=== PATIENT | female | born 2000 | race Two or more races ===

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

== ENCOUNTER 2021-01-22 10:08 | Emergency (ER) | payer MEDICAID, OTHER ==
[~2021-01-22] VITALS: Ht 149.9 cm; Wt 54.4 kg
[2021-01-22] MEDS ORDERED: cefTRIAXone SOD 1,000 MG VL IM ONE (11:30)
[2021-01-22 11:48] VITALS: BP 111/66
== END 2021-01-22 12:32 | disposition home or self-care (01) ==
LOC: ER 10:08
DX: J03.90 Acute tonsillitis, unspecified (principal)
CPT/HCPCS: 96372; 99283; J0696

== ENCOUNTER 2022-02-23 09:42 | Emergency (ER) | payer MEDICAID ==
[~2022-02-23] VITALS: Ht 149.9 cm; Wt 60.0 kg
[2022-02-23 10:03] VITALS: BP 131/68
[2022-02-23] MEDS ORDERED: cefTRIAXone SOD 1,000 MG VL IM ONE (10:45)
[2022-02-23] MEDS ORDERED: AZIT500T66 PO (11:12)
[2022-02-23] MEDS ORDERED: LIDO2SOL23 MT (11:12)
== END 2022-02-23 11:25 | disposition home or self-care (01) ==
LOC: ER 09:42
DX: J03.90 Acute tonsillitis, unspecified (principal)
CPT/HCPCS: 96372; 99283; J0696

== ENCOUNTER 2022-06-13 02:56 | Emergency (ER) | payer MEDICAID ==
[~2022-06-13] VITALS: Ht 149.9 cm; Wt 135.0 kg
[~2022-06-13 02:56] MED LIST changes: -ACETAMINOPHEN 500 MG TAB PO ONE; +AZIT500T66 PO; +LIDO2SOL23 MT; -cefTRIAXone SOD 1,000 MG VL ONE; -cefTRIAXone W LIDOCAINE 1 GM IM IM ONE; -methylPREDNISolone SOD SUCC 125 MG/2 ML VL IM ONE
[2022-06-13 04:19] VITALS: BP 122/71
== END 2022-06-13 04:23 | disposition home or self-care (01) ==
LOC: ER 02:56
DX: T19.2XXA Foreign body in vulva and vagina, initial encounter (principal); X58.XXXA Exposure to other specified factors, initial encounter; Y93.89 Activity, other specified; Y92.89 Other specified places as the place of occurrence of the external cause; Y99.8 Other external cause status

== ENCOUNTER 2022-08-14 00:26 | Emergency (ER) | payer MEDICAID ==
[~2022-08-14] VITALS: Ht 149.9 cm; Wt 63.8 kg
[2022-08-14 00:46] VITALS: BP 128/55
[2022-08-14 01:19] LABS: Basophils # (auto) 0 10 ^3/uL (0-0.2); Basophils % (auto) 0.5 % (0.0-2.0); Eosinophils # (auto) 0.2 10 ^3/uL (0-0.8); Eosinophils % (auto) 2.7 % (0.0-7.0); Hematocrit 38.3 % (36.0-46.0); Lymphocytes # (auto) 1.1 10 ^3/uL (0.4-5.4); Lymphocytes % (auto) 16.4 % (10.0-50.0); Mean Corpuscular Hemoglobin 31.2 pg (28.0-32.0); Monocytes # (auto) 0.6 10 ^3/uL (0-1.3); Monocytes % (auto) 9.7 % (0.0-12.0); Neutrophils # (auto) 4.7 10 ^3/uL (1.6-8.6); Neutrophils % (auto) 70.7 % (37.0-80.0); Red Blood Cells 4.17 10^6/uL (4.0-5.20); Red Cell Distribution Width 14.6 % (11.8-14.3); White Blood Cell 6.6 10^3/uL (4.4-10.8)
[2022-08-14 01:34] LABS: Albumin 3.8 g/dL (3.4-5.0); BUN/Creatinine Ratio 17.5 (10.0-20.0); Calcium 8.7 mg/dL (8.5-10.1); Potassium 3.7 mmol/L (3.5-5.1)
[2022-08-14 01:36] LABS: Bilirubin, Total 0.4 mg/dL (0.2-1.0); Total Protein 7.5 g/dL (6.4-8.2)
[2022-08-14 02:44] LABS: Urine Bacteria NONE SEEN /hpf (None Seen); Urine Blood Negative /uL (Negative); Urine Specific Gravity 1.009 (1.001-1.035); Urine WBC 2 /hpf (0 - 5)
== END 2022-08-14 03:48 | disposition left against medical advice (07) ==
LOC: ER 00:26
DX: T19.2XXA Foreign body in vulva and vagina, initial encounter (principal); Z88.1 Allergy status to other antibiotic agents; X58.XXXA Exposure to other specified factors, initial encounter; Y93.89 Activity, other specified; Y92.89 Other specified places as the place of occurrence of the external cause; Y99.8 Other external cause status
CPT/HCPCS: 36415; 80053; 81001; 85025

== ENCOUNTER 2022-11-16 17:14 | Emergency (ER) | payer MEDICAID ==
[~2022-11-16] VITALS: Ht 149.9 cm; Wt 62.8 kg
[~2022-11-16 17:14] MED LIST changes: -LIDO2SOL23 MT; +LIDO2SOL26 MT
[2022-11-16] MEDS ORDERED: AMOX500C2 PO (20:22)
[2022-11-16] MEDS ORDERED: LIDO2SOL26 MT (20:50)
[2022-11-16 20:55] VITALS: BP 103/63
== END 2022-11-16 20:57 | disposition left against medical advice (07) ==
LOC: ER 17:14
DX: J03.90 Acute tonsillitis, unspecified (principal)
CPT/HCPCS: 71045